=== PATIENT | female | born 1975 | race Caucasian/White ===

== ENCOUNTER 2016-09-04 08:00 | Outpatient (RCR) | payer BC ==
[2005-05-05 10:51] VITALS: TEMP 98
[~2016-09-04 08:00] MED LIST: LEXAPRO10 MG PO; MOBIC 7.5MG7.5 MG PO; MOTRIN 200200 MG/TAB PO; NATURE'S BLEND F1 MG PO; TYLENOL 500MG500 MG PO; XANAX 0.5MG0.5 MG PO; ZYRTEC-D 5 MG-11 TER PO
== END 2016-10-16 | disposition home or self-care (01) ==
LOC: MKS.ESL.PT
DX: M51.27 Other intervertebral disc displacement, lumbosacral region (principal)
CPT/HCPCS: G0283-GP

== ENCOUNTER → 2017-02-13 | Outpatient (CLI) | payer BC ==
[2005-05-05 10:51] VITALS: TEMP 98
== END ==
LOC: MC.RAD 07:58
DX: Z12.31 Encounter for screening mammogram for malignant neoplasm of breast (principal)

== ENCOUNTER → 2017-07-29 | Outpatient (CLI) | payer BC ==
[2005-05-05 10:51] VITALS: TEMP 98
== END ==
LOC: COL.RAD 12:23
DX: N83.202 Unspecified ovarian cyst, left side (principal); N83.201 Unspecified ovarian cyst, right side; N91.2 Amenorrhea, unspecified

== ENCOUNTER → 2018-03-08 | Outpatient (CLI) | payer BC ==
[2005-05-05 10:51] VITALS: TEMP 98
== END ==
LOC: MC.RAD 14:35
DX: Z12.31 Encounter for screening mammogram for malignant neoplasm of breast (principal)

== ENCOUNTER → 2019-02-08 | Outpatient (CLI) | payer BC ==
[2005-05-05 10:51] VITALS: TEMP 98
== END ==
LOC: COL.RAD 09:15
DX: N94.6 Dysmenorrhea, unspecified (principal)

== ENCOUNTER → 2019-03-11 | Outpatient (CLI) | payer BC ==
[2005-05-05 10:51] VITALS: TEMP 98
== END ==
LOC: MC.RAD 11:23
DX: Z12.31 Encounter for screening mammogram for malignant neoplasm of breast (principal); N63.10 Unspecified lump in the right breast, unspecified quadrant

== ENCOUNTER → 2019-03-15 | Outpatient (CLI) | payer BC ==
[2005-05-05 10:51] VITALS: TEMP 98
== END ==
LOC: MC.RAD 07:58
DX: N63.10 Unspecified lump in the right breast, unspecified quadrant (principal); Z98.82 Breast implant status

== ENCOUNTER → 2020-03-15 | Outpatient (CLI) | payer BC ==
[2005-05-05 10:51] VITALS: TEMP 98
== END ==
LOC: MC.RAD 11:24
DX: Z12.31 Encounter for screening mammogram for malignant neoplasm of breast (principal)

== ENCOUNTER → 2020-09-19 | Outpatient (CLI) | payer BC ==
[2005-05-05 10:51] VITALS: TEMP 98
== END ==
LOC: COL.VAS 12:11
DX: R06.02 Shortness of breath (principal); R06.01 Orthopnea

== ENCOUNTER → 2020-11-06 | Outpatient (CLI) | payer BC ==
[2005-05-05 10:51] VITALS: TEMP 98
== END ==
LOC: COL.RAD 07:45
DX: M54.6 Pain in thoracic spine (principal); K82.8 Other specified diseases of gallbladder

== ENCOUNTER → 2021-04-16 | Outpatient (CLI) | payer BC ==
[2005-05-05 10:51] VITALS: TEMP 98
== END ==
LOC: MC.RAD 09:15
DX: Z12.31 Encounter for screening mammogram for malignant neoplasm of breast (principal)

== ENCOUNTER → 2022-04-14 | Outpatient (CLI) | payer BC ==
[2005-05-05 10:51] VITALS: TEMP 98
== END ==
LOC: COL.RAD 12:47
DX: R63.5 Abnormal weight gain (principal); G47.00 Insomnia, unspecified; N39.3 Stress incontinence (female) (male); E55.9 Vitamin D deficiency, unspecified; E31.9 Polyglandular dysfunction, unspecified

== ENCOUNTER → 2022-04-17 | Outpatient (CLI) | payer BC ==
[2005-05-05 10:51] VITALS: TEMP 98
== END ==
LOC: MC.RAD 07:53
DX: Z12.31 Encounter for screening mammogram for malignant neoplasm of breast (principal)

== ENCOUNTER → 2024-05-10 | Outpatient (REF) | payer BC ==
[2005-05-05 10:51] VITALS: TEMP 98
[~2024-05-10] MED LIST changes: +ALDACTONE 25MG25 M1 PO; +ARMOUR THYROID30 MG PO; +CURCUPLEX-95500 MG PO; +LOPRESSOR 225 MG/TAB PO; +NORCO 325 MG-51 TAB PO; +PROBIOTIC BLEN1 EACH PO; +PROMETRIUM100 MG PO; +PROTONIX 40MG T40 MG PO; +VITAMIN B12 1541 TAB PO; +VITAMIND3 5000 PO; +WELLBUTRIN XL300 M1 PO
== END ==
LOC: ZCOL.LAB 16:49
DX: J31.2 Chronic pharyngitis (principal)

== ENCOUNTER 2024-05-12 08:02 | Day surgery (SDC) | payer BC ==
[~2024-05-12] VITALS: Ht 172.7 cm; Wt 117.1 kg
[~2024-05-12 08:02] MED LIST changes: -CURCUPLEX-95500 MG PO; +Indocyanine Green 12.5 MG in Water For Injection,Sterile 2.5 ML IV ONE; +LR 1,000 ML IV SCH; -NORCO 325 MG-51 TAB PO; -PROTONIX 40MG T40 MG PO
[2024-05-12] MEDS ORDERED: Indocyanine Green 12.5 MG in Water For Injection,Sterile 2.5 ML IV ONE (08:30)
[2024-05-12] MEDS ORDERED: Lidocaine PF 2% (20 MG/ML) 5 ML VIAL ONE (08:55)
[2024-05-12] MEDS ORDERED: Ondansetron 4 MG/2 ML VIAL ONE (08:55)
[2024-05-12] MEDS ORDERED: NS 10 ML IV ONE (08:55)
[2024-05-12] MEDS ORDERED: fentaNYL 50 MCG/ML 2 ML VIAL ONE ×2 (08:55→10:21)
[2024-05-12] MEDS ORDERED: dexAMETHasone 10 MG/ML VIAL ONE (08:55)
[2024-05-12] MEDS ORDERED: Ketorolac 30 MG/ML VIAL ONE (08:55)
[2024-05-12] MEDS ORDERED: Rocuronium 50 MG/5 ML Multi-Dose VIAL ONE (08:56)
[2024-05-12] MEDS ORDERED: droPERidol 2.5 MG/ML 2 ML VIAL IV PRN (09:00)
[2024-05-12] MEDS ORDERED: Ondansetron 4 MG/2 ML VIAL IV PRN ×2 (09:00→11:00)
[2024-05-12] MEDS ORDERED: Famotidine 20 MG TAB PO SCH (09:00)
[2024-05-12] MEDS ORDERED: Meclizine 25 MG TAB PO SCH (09:00)
[2024-05-12] MEDS ORDERED: fentaNYL 50 MCG/ML 1 ML SYRINGE/VIAL [PACU/SDC ONLY] IV PRN (09:00)
[2024-05-12] MEDS ORDERED: Morphine 2 MG/1 ML VIAL [PACU/SDC ONLY] IV PRN (09:00)
[2024-05-12] MEDS ORDERED: HYDROmorphone 1 MG/1 ML SYRINGE [PACU/SDC ONLY] IV PRN (09:00)
[2024-05-12] MEDS ORDERED: Meperidine 50 MG/ML 1 ML VIAL IV PRN (09:00)
[2024-05-12] MEDS ORDERED: Scopolamine 1 MG Delivered 3-Day PATCH TD SCH (09:15)
[2024-05-12 09:29] VITALS: BP 132/82; PULSE 72; TEMP 98
[2024-05-12] MEDS ORDERED: PROTONIX 40MG T40 MG PO (09:39)
[2024-05-12] MEDS ORDERED: CURCUPLEX-95500 MG PO (09:51)
[2024-05-12] MEDS ORDERED: Topical Skin Adhesive 1 EACH (1 ML) TOP ONE (10:12)
[2024-05-12] MEDS ORDERED: NORCO 325 MG-51 TAB PO (10:54)
[2024-05-12] MEDS ORDERED: Acetaminophen 325 MG TAB PO PRN (11:00)
[2024-05-12] MEDS ORDERED: Ibuprofen 600 MG TAB PO PRN (11:00)
[2024-05-12 11:25] VITALS: BP 115/64; PULSE 68; TEMP 97.3
[2024-05-12 11:40] VITALS: BP 117/67; PULSE 64; TEMP 97.1
[2024-05-12 11:55] VITALS: BP 127/77; PULSE 77
--- NOTE | 2024-05-12 12:18 | NUR ---
1125- pT arrives to [facility] [place] bay [address] via cart. VSS. Bedside handoff received form IKE Cervantes. IV to right hand without issue, LR infusing. Pt reports headache 12/10. Requests scopalamine patch removed, this was done. Tylenol, crackers and sprite given. abdomina incisions x4, skin glue, CDI. 1200- Discharge instructions given to patient and mother. Questions answered. 1205- Pt dressed without issue, IV site removed. 1215- Pt discharged to mothers car via w/c. Accompanied by this nurse. Denied complaints.
== END 2024-05-12 12:15 | disposition home or self-care (01) ==
LOC: SDCO 08:02
DX: K81.1 Chronic cholecystitis (principal); Z87.891 Personal history of nicotine dependence
CPT/HCPCS: J0690; J1100; J1885; J2405; J2704; J3010; J7120